=== PATIENT | male | born 1980 | race Caucasian/White ===

== ENCOUNTER 2019-02-04 20:03 | Emergency (ER) | payer OTHER ==
[2019-02-04 20:10] VITALS: BP 128/84
[2019-02-04] MEDS ORDERED: SODIUM BICARBONATE ABBOJECT 50 MEQ/50 ML SYRINGE IVP STA (20:13)
[2019-02-04] MEDS ORDERED: LIDOCAINE 2%-EPI 1:100000 20 ML MDV SUBQ STA (20:13)
--- NOTE | 2019-02-04 20:15 | ED Physician Documentation ---
History of Present Illness - Stated complaint Stated Complaint: HEMORRHOID - Chief complaint Chief Complaint: General - History obtained from History obtained from: Patient - History of Present Illness Timing: Today (38-year-old gentleman with history of hemorrhoids presents with a painful thrombosed hemorrhoid that just started yesterday.) Review of Systems Constitutional: reports: Reviewed and negative Cardiac: reports: Reviewed and negative Respiratory: reports: Reviewed and negative PD PAST MEDICAL HISTORY - Past Medical History Past Medical History: No - Allergies Allergies/Adverse Reactions: Allergies Allergy/AdvReac Type Severity Reaction Status Date / Time No Known Drug Allergies Allergy Verified 02/04/19 20:10 - Living Situation Living Situation: reports: With spouse/s.o. - Social History Does the pt smoke?: No - Family History Family history: reports: Non contributory PD ED PE NORMAL - Vitals Vital signs reviewed: Yes - General General: Alert and oriented X 3, No acute distress - Male Male : Other (Left inferior thrombosed external hemorrhoid) - Neuro Neuro: Alert and oriented X 3, Normal speech Results - Vitals Vitals: Vital Signs - 24 hr 02/04/19 20:06 Temperature 36.8 C Heart Rate 49 L Respiratory 16 Rate Blood Pressure 128/84 H O2 Saturation 99 Oxygen O2 Source Room air Procedures - General procedure General procedure: After discussion and verbal informed consent the base of the hemorrhoid was infi ltrated with a 9-1 mixture of 2% lidocaine with epinephrine and sodium bicarbonate. A lenticular incision was made over the fluctuant part of the hemorrhoid and the clot was expressed. Departure - Departure Disposition: 01 Home, Self Care Clinical Impression: Hemorrhoid Condition: Good Record reviewed to determine appropriate education?: Yes Instructions: ED Hemorrhoids Comments: He may have a little bit of postoperative bleeding, return for significant bleeding. Keep it clean, bathe frequently. Discharge Date/Time: 02/04/19 20:31
== END 2019-02-04 20:31 | disposition home or self-care (01) ==
LOC: ED 20:03
DX: K64.5 Perianal venous thrombosis (principal)
CPT/HCPCS: 46083; 99282